=== PATIENT | male | born 1955 | race African-American/Black ===

== ENCOUNTER 2019-11-22 02:09 | Emergency (ER) | payer MEDICAID, OTHER ==
[~2019-11-22] VITALS: Ht 188 cm; Wt 113.0 kg
[2019-11-22] MEDS ORDERED: SODIUM CHLORIDE 0.9% 1,000 ML IV ONE (02:42)
[2019-11-22] MEDS ORDERED: MORPHINE SULFATE 4 MG/ML CPJ (NOT FOR IM USE) IV STA (02:42)
[2019-11-22] MEDS ORDERED: ONDANSETRON HCL 4MG/2ML INJ IV STA (02:42)
[2019-11-22 03:34] LABS: CHLORIDE 105 mEq/L (98-107)
[2019-11-22 03:39] LABS: BASOPHILS % 1.3 % (0.0-2.0); EOSINOPHILS % 0.9 % (0.0-5.0); HEMATOCRIT. 42.9 % (42.0-52.0); LYMPHOCYTES % 37.8 % (20.0-50.0); MEAN CORPUSCULAR HEMOGLOBIN 25.9 pg (28.0-32.0); MEAN CORPUSCULAR VOLUME 79.6 fL (80.0-94.0); MEAN PLATELET VOLUME 8.1 fl (7.4-10.4); MONOCYTES % 10.9 % (2.0-8.0); NEUTROPHILS % 49.1 % (40.0-76.0); PLATELET 283 x1000/uL (130-400); RED CELL DISTRIBUTION WIDTH 14.5 % (11.6-14.6)
[2019-11-22] MEDS ORDERED: IOHEXOL-300 100 ML BOTTLE ONE (04:21)
[2019-11-22 05:05] LABS: CLARITY URINE CLEAR (CLEAR); COLOR URINE YELLOW (YELLOW); KETONES URINE NEGATIVE (NEGATIVE); LEUKOCYTE ESTERASE URINE NEGATIVE (NEGATIVE); NITRITE URINE NEGATIVE (NEGATIVE); OCCULT BLOOD URINE TRACE (NEGATIVE); PH URINE 5.5 (4.5-8.0); PROTEIN URINE NEGATIVE (NEGATIVE); SPECIFIC GRAVITY URINE 1.052 (1.005-1.030)
[2019-11-22 05:47] VITALS: BP 169/102
== END 2019-11-22 05:48 | disposition home or self-care (01) ==
LOC: ER 02:38
DX: S39.81XA Other specified injuries of abdomen, initial encounter (principal); S20.212A Contusion of left front wall of thorax, initial encounter; J44.9 Chronic obstructive pulmonary disease, unspecified; E11.9 Type 2 diabetes mellitus without complications; I10 Essential (primary) hypertension; W01.0XXA Fall on same level from slipping, tripping and stumbling without subsequent striking against object, initial encounter; Y93.89 Activity, other specified; Y92.018 Other place in single-family (private) house as the place of occurrence of the external cause
CPT/HCPCS: 36415; 71045; 74177; 80053; 81003; 85025; 96361; 96374; 96375; 99285; J2270; J2405; J7030; Q9967

== ENCOUNTER 2021-02-03 05:16 | Inpatient (IN) | payer MEDICAID ==
[~2021-02-03] VITALS: Ht 175.3 cm; Wt 81.7 kg
[2021-02-03] MEDS ORDERED: METHYLPREDNISOLONE SOD SUCC 125 MG/2 ML VIAL IV STA (05:30)
[2021-02-03] MEDS ORDERED: IPRATROPIUM BROMIDE (0.02%) 0.5MG/2.5ML NEB HHN STA (05:30)
[2021-02-03] MEDS ORDERED: ALBUTEROL (0.083%) 2.5MG/3ML NEB HHN STA (05:30)
[2021-02-03 05:58] LABS: BASOPHILS % 0.8 % (0.0-2.0); EOSINOPHILS % 0.9 % (0.0-5.0); HEMATOCRIT. 46.2 % (42.0-52.0); LYMPHOCYTES % 49.5 % (20.0-50.0); MEAN CORPUSCULAR HEMOGLOBIN 25.6 pg (28.0-32.0); MEAN CORPUSCULAR VOLUME 78.9 fL (80.0-94.0); MONOCYTES % 8.3 % (2.0-8.0); NEUTROPHILS % 40.5 % (40.0-76.0); PLATELET 344 x1000/uL (130-400); RED BLOOD CELL COUNT 5.85 mill/uL (4.7-6.1); RED CELL DISTRIBUTION WIDTH 14.1 % (11.6-14.6)
[2021-02-03 05:59] LABS: CHLORIDE 103 mEq/L (98-107)
[2021-02-03 06:03] LABS: ETHANOL BLOOD < 10 mg/dL
[2021-02-03 07:12] LABS: *AMPHETAMINES SCREEN URINE NEGATIVE (NEGATIVE); *BARBITURATES SCREEN URINE NEGATIVE (NEGATIVE); CANNABINOID URINE SCREEN NEGATIVE (NEGATIVE); PHENCYCLIDINE URINE SCREEN NEGATIVE (NEGATIVE)
[2021-02-03 07:13] LABS: *BENZODIAZEPINES SCREEN URINE NEGATIVE (NEGATIVE); *COCAINE SCREEN URINE NEGATIVE (NEGATIVE); METHADONE URINE SCREEN NEGATIVE (NEGATIVE); OPIATES URINE SCREEN NEGATIVE (NEGATIVE)
[2021-02-03] MEDS ORDERED: DIPHENHYDRAMINE 50MG/ML VIAL IV PRN (09:15)
[2021-02-03] MEDS ORDERED: CLONIDINE 0.1MG TABLET PO PRN (09:15)
[2021-02-03] MEDS ORDERED: IPRATROPIUM/ALBUTEROL 0.5-3(2.5)MG/3ML NEB HHN PRN (09:15)
[2021-02-03] MEDS ORDERED: ONDANSETRON HCL 4MG/2ML INJ IV PRN (09:15)
[2021-02-03] MEDS: ACETAMINOPHEN 325MG TABLET PO PRN (11:59)
[2021-02-03] MEDS: METHYLPREDNISOLONE SOD SUCC 125 MG/2 ML VIAL IV SCH ×3 (12:00→23:45)
[2021-02-03 15:20] VITALS: BP 138/86
[2021-02-03 16:00] VITALS: BP 139/86
[2021-02-03] MEDS ORDERED: METF-415 PO (16:52)
[2021-02-03] MEDS ORDERED: DEXTROSE 50% WATER 50ML SYRINGE IV PRN (17:30)
[2021-02-03] MEDS: INSULIN LISPRO 100 UNITS/ML SUBCUT SCH ×2 (17:35→20:42)
[2021-02-03 20:00] VITALS: BP 147/76
[2021-02-03] MEDS: BLOOD SUGAR DIAGNOSTIC STRIP TEST SCH (20:41)
[2021-02-03] MEDS: HYDRALAZINE HCL 25MG TABLET PO SCH (21:02)
[2021-02-04] VITALS: BP 150/72
[2021-02-04 04:00] VITALS: BP 153/80
[2021-02-04] MEDS: BLOOD SUGAR DIAGNOSTIC STRIP TEST SCH ×2 (06:24→12:10)
[2021-02-04 06:29] LABS: HEMATOCRIT. 43.2 % (42.0-52.0); HEMOGLOBIN. 14.1 g/dL (14.0-18.0); LYMPHOCYTES % 12.3 % (20.0-50.0); MEAN CORPUSCULAR VOLUME 79.8 fL (80.0-94.0); MEAN PLATELET VOLUME 8.1 fl (7.4-10.4); MONOCYTES % 1.4 % (2.0-8.0); NEUTROPHILS % 86.3 % (40.0-76.0); PLATELET 342 x1000/uL (130-400); RED BLOOD CELL COUNT 5.42 mill/uL (4.7-6.1); RED CELL DISTRIBUTION WIDTH 14.1 % (11.6-14.6)
[2021-02-04] MEDS: HYDRALAZINE HCL 25MG TABLET PO SCH ×2 (06:34→13:38)
[2021-02-04] MEDS: METHYLPREDNISOLONE SOD SUCC 125 MG/2 ML VIAL IV SCH ×2 (06:35→13:25)
[2021-02-04] MEDS: ACETAMINOPHEN 325MG TABLET PO PRN ×2 (06:35→10:55)
[2021-02-04 06:36] LABS: CHLORIDE 102 mEq/L (98-107)
[2021-02-04] MEDS: INSULIN LISPRO 100 UNITS/ML SUBCUT SCH ×2 (06:37→13:39)
[2021-02-04] MEDS ORDERED: PANTOPRAZOLE 40MG DR TABLET PO SCH (07:10)
[2021-02-04 08:00] VITALS: BP 167/91
[2021-02-04] MEDS ORDERED: LOSARTAN POTASSIUM 100 MG TABLET PO SCH (09:00)
[2021-02-04] MEDS ORDERED: AMLODIPINE 10MG TABLET PO SCH (09:00)
[2021-02-04] MEDS ORDERED: SODIUM POLYSTYRENE SULFONATE 15 G/60 ML BOT PO SCH (10:00)
[2021-02-04 12:00] VITALS: BP 152/94
[2021-02-04 15:07] VITALS: BP 152/94
== END 2021-02-04 17:00 | disposition home or self-care (01) | DRG 140 ==
LOC: ER 05:16 → EDBEDREQ 08:14 → ENRESERV 12:34 → 8WST 15:25
PROVIDERS: ADMIT Internal Medicine; ATTEND Internal Medicine
DX: J44.1 Chronic obstructive pulmonary disease with (acute) exacerbation (principal); J96.00 Acute respiratory failure, unspecified whether with hypoxia or hypercapnia; Z20.822 Contact with and (suspected) exposure to COVID-19; E11.9 Type 2 diabetes mellitus without complications; F17.200 Nicotine dependence, unspecified, uncomplicated; I10 Essential (primary) hypertension; K21.9 Gastro-esophageal reflux disease without esophagitis
CPT/HCPCS: 36415; 71045; 80053; 80305; 80320; 82962; 83036; 83880; 84132; 84443; 84484; 85025; 87426; 99291; J1200; J1815; J2930; G0480

== ENCOUNTER 2022-10-01 05:21 | Emergency (ER) | payer MEDICAID, OTHER ==
[~2022-10-01] VITALS: Ht 170.2 cm; Wt 73.0 kg
[~2022-10-01 05:21] MED LIST: METF-415 PO
[2022-10-01 05:22] VITALS: TEMP 98.6; O2SAT 100
[2022-10-01] MEDS ORDERED: ONDANSETRON HCL 4MG/2ML INJ IV ONE (06:00)
[2022-10-01] MEDS ORDERED: MAGNESIUM/ALUMINUM HYDROXIDE/SIMETHICONE 30ML UDC PO ONE (06:00)
[2022-10-01] MEDS ORDERED: FAMOTIDINE 20MG/2ML VIAL IV ONE (06:00)
[2022-10-01 06:20] LABS: CHLORIDE 108 mEq/L (98-107); INDEX HEMOLYSI 1 (1-3); INDEX ICTERIC 1 (1-4); INDEX LIPEMIC 1 (1-3); POTASSIUM 3.6 mEq/L (3.5-5.1); SODIUM 137 mEq/L (136-145)
[2022-10-01 06:23] LABS: BASOPHILS % 0.8 % (0.0-2.0); EOSINOPHILS % 0.9 % (0.0-5.0); HEMOGLOBIN. 13.6 g/dL (14.0-18.0); LYMPHOCYTES % 41.3 % (20.0-50.0); MEAN CORPUSCULAR HEMOGLOBIN 27.2 pg (28.0-32.0); MEAN PLATELET VOLUME 7.6 fl (7.4-10.4); MONOCYTES % 10.6 % (2.0-8.0); NEUTROPHILS % 46.4 % (40.0-76.0); PLATELET 307 x1000/uL (130-400); RED BLOOD CELL COUNT 5.01 mill/uL (4.7-6.1); RED CELL DISTRIBUTION WIDTH 14.8 % (11.6-14.6); WHITE BLOOD COUNT 7.2 x1000/uL (4.5-11.0)
[2022-10-01 06:29] LABS: ALANINE AMINOTRANSFERASE 16 IU/L (13-61); ALBUMIN 3.5 g/dL (3.4-5.0); ASPARTATE AMINOTRANSFERASE 16 IU/L (15-37); BILIRUBIN TOTAL 0.2 mg/dL (0.1-1.0); CARBON DIOXIDE 22 mEq/L (21-32); CREATININE 0.8 mg/dL (0.6-1.3); GLUCOSE 123 mg/dL (70-105); NT PRO B-TYPE NATRIURETIC PEP 5 pg/mL (5-125); PROTEIN TOTAL 7.4 g/dL (6.0-8.3); TROPONIN I HIGH SENSITIVITY 5 ng/L (<78); UREA NITROGEN BLOOD 15 mg/dL (7-21)
[2022-10-01 06:44] LABS: BG BASE EXCESS -0.1 mmol/L (-2.0-2.0); BG CARBOXYHEMOGLOBIN 2.3 % (0.5-1.5); BG DEOXYHEMOGLOBIN 5.4 % (0.0-5.0); BG METHEMOGLOBIN 0.2 % (0.0-1.5); BG OXYGEN SATURATION 94.5 % (92.0-98.5); BG OXYHEMOGLOBIN 92.1 % (94.0-97.0); BG PCO2 37.8 mmHg (35.0-45.0); BG PH 7.421 (7.350-7.450); BG PO2 71.7 mmHg (75.0-100.0); BG SAMPLE SITE RIGHT RADIAL; BG TOTAL HEMOGLOBIN 15.2 g/dL (12.0-18.0); BG VENT MODE ROOM AIR
[2022-10-01] MEDS ORDERED: FAMOTIDINE 20MG/2ML VIAL IV NR (08:15)
[2022-10-01] MEDS ORDERED: ONDANSETRON HCL 4MG/2ML INJ IV NR (08:15)
[2022-10-01] MEDS ORDERED: MAGNESIUM/ALUMINUM HYDROXIDE/SIMETHICONE 30ML UDC PO NR (08:15)
[2022-10-01 10:49] VITALS: BP 157/95; PULSE 82; RESP 16
== END 2022-10-01 10:53 | disposition home or self-care (01) ==
LOC: ER 05:32
DX: R06.02 Shortness of breath (principal); J44.1 Chronic obstructive pulmonary disease with (acute) exacerbation; J45.909 Unspecified asthma, uncomplicated; E11.9 Type 2 diabetes mellitus without complications; I10 Essential (primary) hypertension
CPT/HCPCS: 80053; 83880; 83690; 85025; 84484; 36415; 71045; 82805; 82375; 93005; 96374; 96375; 99285; 36600; J3490; J2405; Z7610

== ENCOUNTER 2024-09-04 14:11 | Emergency (ER) | payer OTHER ==
[~2024-09-04] VITALS: Ht 177.8 cm; Wt 100.0 kg
[2024-09-04 14:14] VITALS: O2SAT 99
[2024-09-04] MEDS: ONDANSETRON HCL 4MG/2ML INJ IV STA (15:02)
[2024-09-04 15:10] LABS: BASOPHILS % 0.9 % (0.0-2.0); EOSINOPHILS % 0.6 % (0.0-5.0); HEMATOCRIT. 43.6 % (42.0-52.0); HEMOGLOBIN. 13.8 g/dL (14.0-18.0); LYMPHOCYTES % 35.1 % (20.0-50.0); MEAN PLATELET VOLUME 7.2 fl (7.4-10.4); MONOCYTES % 9.5 % (2.0-8.0); NEUTROPHILS % 53.9 % (40.0-76.0); PLATELET 322 x1000/uL (130-400); RED BLOOD CELL COUNT 5.41 mill/uL (4.7-6.1); RED CELL DISTRIBUTION WIDTH 15.3 % (11.6-14.6)
[2024-09-04 15:24] LABS: CREATININE 1.1 mg/dL (0.6-1.3)
[2024-09-04 15:25] LABS: ETHANOL BLOOD < 10 mg/dL (<10); INR 1.0; UREA NITROGEN BLOOD 10 mg/dL (9-23)
[2024-09-04 15:26] LABS: ASPARTATE AMINOTRANSFERASE 21 IU/L (<34); TROPONIN I HIGH SENSITIVITY < 4 ng/L (3.0-53)
[2024-09-04 15:27] LABS: BILIRUBIN DIRECT 0.1 mg/dL (<=3.0); BILIRUBIN TOTAL 0.5 mg/dL (0.1-1.0); PROTEIN TOTAL 7.5 g/dL (6.0-8.3)
[2024-09-04 16:03] LABS: *AMPHETAMINES SCREEN URINE NEGATIVE (NEGATIVE); *BARBITURATES SCREEN URINE NEGATIVE (NEGATIVE); *BENZODIAZEPINES SCREEN URINE NEGATIVE (NEGATIVE); *COCAINE SCREEN URINE NEGATIVE (NEGATIVE); CANNABINOID URINE SCREEN NEGATIVE (NEGATIVE); CLARITY URINE CLEAR (CLEAR); COLOR URINE YELLOW (YELLOW); ECSTASY MDMA SCREEN URINE NEGATIVE (NEGATIVE); GLUCOSE URINE NEGATIVE (NEGATIVE); KETONES URINE NEGATIVE (NEGATIVE); METHADONE URINE SCREEN NEGATIVE (NEGATIVE); OCCULT BLOOD URINE NEGATIVE (NEGATIVE); OPIATES URINE SCREEN NEGATIVE (NEGATIVE); PH URINE 6.0 (4.5-8.0); PHENCYCLIDINE URINE SCREEN NEGATIVE (NEGATIVE); PROTEIN URINE NEGATIVE (NEGATIVE); SPECIFIC GRAVITY URINE 1.005 (1.005-1.030)
[2024-09-04 16:04] LABS: LEUKOCYTE ESTERASE URINE NEGATIVE (NEGATIVE); NITRITE URINE NEGATIVE (NEGATIVE); UROBILINOGEN URINE 0.2 E.U./dL (0.2-1.0)
[2024-09-04 17:19] VITALS: BP 132/67; PULSE 79; RESP 11; TEMP 36.6; O2SAT 98
== END 2024-09-04 17:28 | disposition home or self-care (01) ==
LOC: ER 14:30
DX: R11.0 Nausea (principal); R41.82 Altered mental status, unspecified; E11.9 Type 2 diabetes mellitus without complications; F17.210 Nicotine dependence, cigarettes, uncomplicated; I10 Essential (primary) hypertension; I67.82 Cerebral ischemia; J44.89 Other specified chronic obstructive pulmonary disease; Z79.84 Long term (current) use of oral hypoglycemic drugs; Z79.899 Other long term (current) drug therapy
CPT/HCPCS: 80076; 80305; 80048; 81003; 80320; 82140; 83880; 83690; 85025; 85610; 84484; 36415; 71045; 70450; 93005; 96374; 99285; J2405; G0480

== ENCOUNTER 2024-11-25 12:07 | Emergency (ER) | payer OTHER ==
[~2024-11-25] VITALS: Ht 175.3 cm; Wt 108.0 kg
[2024-11-25 12:09] VITALS: TEMP 36.3; O2SAT 99
[2024-11-25] MEDS: METOCLOPRAMIDE HCL 10MG/2ML VIAL IV ONE (13:39)
[2024-11-25] MEDS: FAMOTIDINE 20MG/2ML VIAL IV ONE (13:39)
[2024-11-25] MEDS: KETOROLAC 15MG/ML VIAL IV ONE (13:42)
[2024-11-25 13:53] LABS: BASOPHILS % 0.9 % (0.0-2.0); EOSINOPHILS % 0.1 % (0.0-5.0); HEMATOCRIT. 46.9 % (42.0-52.0); HEMOGLOBIN. 15.3 g/dL (14.0-18.0); LYMPHOCYTES % 21.3 % (20.0-50.0); MEAN PLATELET VOLUME 7.9 fl (7.4-10.4); MONOCYTES % 5.9 % (2.0-8.0); NEUTROPHILS % 71.8 % (40.0-76.0); PLATELET 295 x1000/uL (130-400); RED BLOOD CELL COUNT 5.91 mill/uL (4.7-6.1); RED CELL DISTRIBUTION WIDTH 14.7 % (11.6-14.6)
[2024-11-25 14:11] LABS: CREATININE 0.9 mg/dL (0.6-1.3); UREA NITROGEN BLOOD 11 mg/dL (9-23)
[2024-11-25 14:12] LABS: TROPONIN I HIGH SENSITIVITY < 4 ng/L (3.0-53)
[2024-11-25 14:13] LABS: ASPARTATE AMINOTRANSFERASE 19 IU/L (<34); BILIRUBIN DIRECT 0.1 mg/dL (<=3.0); BILIRUBIN TOTAL 0.5 mg/dL (0.1-1.0); PROTEIN TOTAL 8.0 g/dL (6.0-8.3)
[2024-11-25] MEDS: MAGNESIUM 2 G PREMIX 50 ML IV ONE (15:55)
[2024-11-25 17:00] LABS: TROPONIN I HIGH SENSITIVITY < 4 ng/L (3.0-53)
[2024-11-25] MEDS ORDERED: MAG-55 MT (17:10)
[2024-11-25] MEDS ORDERED: FAMO-135 MT (17:10)
[2024-11-25] MEDS: GABAPENTIN 400MG CAPSULE PO ONE (17:29)
[2024-11-25] MEDS: ONDANSETRON HCL 4MG/2ML INJ IV ONE (17:29)
[2024-11-25 18:04] VITALS: BP 152/88; PULSE 84; RESP 16; O2SAT 99
== END 2024-11-25 18:05 | disposition home or self-care (01) ==
LOC: ER 12:07
DX: K21.9 Gastro-esophageal reflux disease without esophagitis (principal); E11.9 Type 2 diabetes mellitus without complications; J44.9 Chronic obstructive pulmonary disease, unspecified; I10 Essential (primary) hypertension; Z79.899 Other long term (current) drug therapy
CPT/HCPCS: 80076; 80048; 83880; 83690; 83735; 85025; 85379; 84484; 36415; 71045; 93005; 96365; 96375; 99285; J1308; J1885; J3475; J2765; J2405; Z7610 ×3